=== PATIENT | male | born 1990 | race Hispanic/Latino ===

== ENCOUNTER 2018-10-24 14:21 | Outpatient (CLI) | payer BC ==
--- NOTE | 2018-10-24 15:31 | RAD ---
TWO VIEWS OF THE CHEST: INDICATION: History of primary spontaneous pneumothorax. COMPARISON: None. FINDINGS: There is a [id number] pneumothorax. The right lung is clear. Heart size is normal. No acu te osseous abnormality is evident. IMPRESSION: 1. Moderate-sized left-sided pneumothorax as clinically known. 2. The right lung is clear. POS: [facility]
== END 2018-10-24 14:22 | disposition home or self-care (01) ==
LOC: RAD 14:21
PROVIDERS: ATTEND Thoracic Surgery (Cardiothoracic Vascular Surgery)
DX: J93.11 Primary spontaneous pneumothorax (principal)
CPT/HCPCS: 71046

== ENCOUNTER 2018-10-24 17:29 | Emergency (ER) | payer BC | END 2018-10-24 18:02 | disposition left against medical advice (07) | LOC: ERS 17:29 | DX: Z53.21 Procedure and treatment not carried out due to patient leaving prior to being seen by health care provider (principal) | CPT/HCPCS: 71046; J7620 ==

== ENCOUNTER 2018-10-29 13:39 | Outpatient (CLI) | payer BC ==
--- NOTE | 2018-10-29 14:49 | RAD ---
CHEST 2 VIEWS: HISTORY: Pneumothorax. COMPARISON: Radiograph 10/24/2018. FINDINGS: There is an indwelling left thoracostomy tube. No significant pneumothorax is appreciated. The righ t lung is clear. IMPRESSION: Interval resolution of left pneumothorax with indwelling thoracostomy tube. POS: [facility]
== END 2018-10-29 13:40 | disposition home or self-care (01) ==
LOC: RAD 13:39
PROVIDERS: ATTEND Thoracic Surgery (Cardiothoracic Vascular Surgery)
DX: J93.11 Primary spontaneous pneumothorax (principal)
CPT/HCPCS: 71046

== ENCOUNTER 2018-11-14 13:48 | Outpatient (CLI) | payer BC ==
--- NOTE | 2018-11-14 15:23 | RAD ---
PA AND LATERAL VIEWS OF CHEST: Date: 11/14/18 HISTORY: Spontaneous pneumothorax. FINDINGS: Comparison made with exam of 10/29/18. The left-sided pleural catheter has been removed in the interim. The heart size is normal. The lungs are expanded without focal areas of consolidation, pneumothoraces, or pleural effusions. IMPRESSION: No acute process. POS: [facility]
== END 2018-11-14 13:49 | disposition home or self-care (01) ==
LOC: RAD 13:48
PROVIDERS: ATTEND Thoracic Surgery (Cardiothoracic Vascular Surgery)
DX: J93.11 Primary spontaneous pneumothorax (principal)
CPT/HCPCS: 71046